=== PATIENT | female | born 1955 | race African-American/Black ===

== ENCOUNTER 2018-09-09 16:05 | Inpatient (IN) | payer OTHER ==
[2018-09-09] VITALS (32 sets, daily range): BP systolic 38–172; BP diastolic 20–128
[~2018-09-09] VITALS: Ht 154.9 cm; Wt 48.1 kg
--- NOTE | 2018-09-09 16:08 | NUR ---
SUCC 100 @ 1612 ETOMIDATE 20 @ 1611 AT BEDSIDE TO INTUBATE: 22 AT THE LIP POSITIVE COLOR CHANGE LUNGS SOUNDS-CASMARLENI
--- NOTE | 2018-09-09 16:27 | NUR ---
XRAY AT BEDSIDE
[2018-09-09 16:30] LABS: URINE BILIRUBIN NEGATIVE (Negative); URINE BLOOD NEGATIVE (Negative); URINE CLARITY CLEAR; URINE COLOR YELLOW; URINE GLUCOSE-RANDOM* NEGATIVE (Negative); URINE KETONES NEGATIVE (Negative); URINE LEUKOCYTES-REFLEX NEGATIVE (Negative); URINE NITRITE-REFLEX NEGATIVE (Negative); URINE PROTEIN (DIPSTICK) 2+ (Negative); URINE UROBILINOGEN 0.2 E.U./dl (0.2-1.0)
[2018-09-09 16:38] LABS: HEMATOCRIT 37.4 % (37.0-47.0)
[2018-09-09 16:39] LABS: HEMOGLOBIN 11.4 gm/dL (12.0-15.0); MCH 26.9 pg (26.0-34.0); MCHC 30.6 g/dL (28.0-37.0); PLATELET COUNT 270 thou/uL (150-400); RBC 4.25 mil/uL (4.20-5.00); RDW 14.1 % (10.5-14.5); WBC 14.6 thou/uL (4.0-11.0)
[2018-09-09 16:40] LABS: CALCIUM 11.3 mg/dL (8.5-10.1); CREATININE 1.1 mg/dL (0.6-1.0); POTASSIUM 3.9 mmol/L (3.5-5.1)
[2018-09-09 16:43] LABS: CALCIUM OXALATE 0-3 Few /LPF (None Seen); URINE WBC-REFLEX 0-5 Rare /HPF (0-5)
[2018-09-09 16:44] LABS: BACTERIA-REFLEX 1-9 Few /HPF (None Seen); CASTS None Seen /LPF (None Seen); SQUAMOUS 0-3 Few /LPF (0-3); URINE RBC None Seen /HPF (0-2)
[2018-09-09 16:49] LABS: MAGNESIUM 1.9 mg/dL (1.8-2.4)
[2018-09-09 16:53] LABS: BE(vivo) 0.7 mmol/L (-2 to +3); HCO3 33.2 mmol/L (22.0-26.0); PCO2 119.2 mmHg (35.0-45.0); PO2 96.5 mmHg (80.0-100.0); pH 7.063 (7.360-7.450); sO2 93.2 % (92.0-98.0)
[2018-09-09 16:55] LABS: TROPONIN-I 1.13 ng/mL (<0.06)
[2018-09-09 17:05] LABS: ABSOLUTE NEUTROPHILS 12.6 thou/uL (1.4-8.2)
[2018-09-09 17:06] LABS: BURR CELLS 3+; HYPOCHROMASIA 1+; MICROCYTES 2+
[2018-09-09 18:32] LABS: BE(vivo) -0.8 mmol/L (-2 to +3); HCO3 28.4 mmol/L (22.0-26.0); PCO2 74.9 mmHg (35.0-45.0); PO2 66.9 mmHg (80.0-100.0); sO2 87.9 % (92.0-98.0)
[2018-09-09 18:33] LABS: pH 7.197 (7.360-7.450)
--- NOTE | 2018-09-09 19:08 | NUR ---
DR RAMIREZ AT BEDSIDE; ATTEMPTING TO CONTACT RESPONSIBLE DEMOCRAT (JAYSHREE
[2018-09-09] MEDS ORDERED: NORVASC5 MG PO (21:06)
[2018-09-09] MEDS ORDERED: SYMBICORT160 MCG/4. INH (21:20)
--- NOTE | 2018-09-09 21:20 | NUR ---
PT ADMITTED FROM ER WITH ER NURSE. UNRESPONSIVE, NONREACTIVE LEFT EYE. MINIMAL RESPONSE. NOTED NONPURPOSEFUL MOVEMENT OF ARMS. ST, HR IN THE [address] FERRER AND BARTOLOME INFORMED ABOUT HR. PRESSURES IN THE 70S UPON ARRIVAL. LEVOPHED TITRATED TO KEEP MAP GREATER THAN 65. UNABLE TO GET O2 SAT ON PT, ORDERS FOR ABG REQUESTED. CRITICAL ABG REPORTED TO MARY FRASER AND DR. FERRER. WILL CONTINUE TO MONITOR.
[2018-09-09] MEDS ORDERED: REMERON15 MG PO (21:21)
[2018-09-09] MEDS ORDERED: PREDNISONE50 MG PO (21:22)
[2018-09-09] MEDS ORDERED: SPIRIVA INH (21:23)
[2018-09-09] MEDS ORDERED: TYLENOL325 MG PO (21:24)
[2018-09-09] MEDS ORDERED: HYDROXYZINE HCL25 M1 PO (21:25)
[2018-09-09] MEDS ORDERED: BIPAP MISCELL (21:25)
[2018-09-09 21:41] LABS: BE(vivo) -4.1 mmol/L (-2 to +3); sO2 62.7 % (92.0-98.0)
[2018-09-09 21:42] LABS: PCO2 68.2 mmHg (35.0-45.0)
[2018-09-09 21:48] LABS: pH 7.182 (7.360-7.450)
[2018-09-09 22:42] LABS: HEMATOCRIT 33.2 % (37.0-47.0); HEMOGLOBIN 10.1 gm/dL (12.0-15.0)
--- NOTE | 2018-09-09 22:52 | NUR ---
VASCULAR ACCESS TEAM CONSULTED FOR PICC LINE. LABS,MEDS,HISTORY,ORDER AND CONSENT VERIFIED. 5FR TL POWER PICC INSERTED IN [facility] BASILIC PER HOSPITAL POLICY. TL PICC TRIMMED TO 49CM INSERTED TO 2CM EXTERNAL. STAT CXR SHOWED TOO DEEP SO WITHDREW TOTAL OF 8CM. 2ND CXR ORDERED
[2018-09-09 22:59] LABS: CREATININE 1.5 mg/dL (0.6-1.0); DIRECT BILIRUBIN 0.2 mg/dL (<0.1-0.3); MAGNESIUM 1.5 mg/dL (1.8-2.4); POTASSIUM 3.5 mmol/L (3.5-5.1); TOTAL BILIRUBIN 0.4 mg/dL (<0.1-1.0)
[2018-09-09 23:04] LABS: CALCIUM 8.3 mg/dL (8.5-10.1); TROPONIN-I 5.94 ng/mL (<0.06)
[2018-09-10] VITALS (16 sets, daily range): BP systolic 46–212; BP diastolic 10–115
[2018-09-10 00:31] LABS: BE(vivo) 13.7 mmol/L (-2 to +3); HCO3 46.5 mmol/L (22.0-26.0); PCO2 147.7 mmHg (35.0-45.0); PO2 34.5 mmHg (80.0-100.0); pH 7.116 (7.360-7.450); sO2 43.2 % (92.0-98.0)
--- NOTE | 2018-09-10 00:48 | NUR ---
INITIAL CODE TATI CALLED ON PT AT 2220, EMERGENCY MEDICINE PHYSICIAN EVELIO AT BEDSIDE. CODED BY DIRECTION OF DR. FERNANDO AND EMERGENCY MEDICINE PHYSICIAN BARTOLOME. INFORMED DR. FERRER ABOUT CODE AT 2245. MATHEW DUFFY CALLED SEVEN TIMES DURING THE NIGHT, DR. FERRER PRESENT FOR MARJORITY OF THE CODE CALLED. PT MAXED ON LEVOPHED, EPI, VASOPRESSIN, DOPAMIN DURING THE CODE. FAMILY AT BEDSIDE DURING THE LAST CODE. PT CHANGED STATUS TO DNR AND DECIDED TO REDRAW CARE AFTER TALKING TO DR. FERRER. TIME OF CALLED 0048, 09/10/18. SEE CODE SHEETS FOR MEDICATIONS AND EVENTS.
--- NOTE | 2018-09-10 08:00 | EKG ---
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: Lesvia MIRELES RN : 1955 Requested By: Solomon Grey Order Number: [id number] MD: Ian Whittington Measurements Intervals [place] Rate: 115 P: 93 FL: 127 QRS: 94 QRSD: 82 T: 47 QT: 377 QTc: 522 Interpretive Statements Sinus tachycardia Nonspecific ST segment abnormality Prolonged QT interval No previous ECG available for comparison Electronically Signed On 09-10-2018 8:00:45 CDT by Ian Whittington [email or web address] ��������������������������������������������� <ELECTRONICALLY SIGNED> ���������������������������������������� By: Ian Whittington MD, [facility] ��������������������������������������������� 09/10/18 0800 185 52 Ian Whittington MD, FACC /EPI
--- NOTE | 2018-09-10 08:14 | EKG ---
[address] [place] [address] ELECTROCARDIOGRAM REPORT Name: SALOMEROBIN Room #: 239-P [facility] IN M.R.#: [id number] ������������������ Admission: 09/09/18 ������������������ Attend Phys: Ernestina Alford Discharge: 09/10/18 ������������������ Date of : 55 Report #: [id number] ����������������������������������������������������������������� [id number] THIS REPORT FOR: //name// [facility] ED Test Date: 2018-09-09 Test Time: 16:13:49 Pat Name: ROBIN MCMAHON Department: Room: 239 Gender: F [employer] Operator: SUNITA : 1955 Requested By: Solomon Grey Order Number: [id number] MD: Peter Xiao Measurements Intervals [place] Rate: 148 P: [place]: QRS: 71 QRSD: 86 T: 72 QT: 343 QTc: 539 Interpretive Statements Atrial fibrillation with rapid V-rate Repolarization abnormality, prob rate related No previous ECG available for comparison Electronically Signed On 09-10-2018 8:14:12 CDT by Peter Xiao [email or web address] ��������������������������������������������� <ELECTRONICALLY SIGNED> ���������������������������������������� By: Peter Xiao MD ��������������������������������������������� 09/10/18 0814 1613 12 Peter Xiao MD /VISH
== END 2018-09-10 00:48 | DRG 871 ==
LOC: ER 16:05 → EROBS 18:46 → ICU 20:22
PROVIDERS: Emergency Medicine; Nurse Practitioner Acute Care; Pediatrics; ADMIT Hospitalist
PROC: BH4BZZZ Ultrasonography of Chest Wall (ICD-10-PCS; principal; 2018-09-09)
PROC: 02HV33Z Insertion of Infusion Device into Superior Vena Cava, Percutaneous Approach (ICD-10-PCS; principal; 2018-09-09)
PROC: 0BH17EZ Insertion of Endotracheal Airway into Trachea, Via Natural or Artificial Opening (ICD-10-PCS; principal; 2018-09-09)
PROC: 5A1935Z Respiratory Ventilation, Less than 24 Consecutive Hours (ICD-10-PCS; principal; 2018-09-09)
DX: A41.9 Sepsis, unspecified organism (principal); R65.21 Severe sepsis with septic shock; J96.21 Acute and chronic respiratory failure with hypoxia; J96.22 Acute and chronic respiratory failure with hypercapnia; J18.9 Pneumonia, unspecified organism; N17.9 Acute kidney failure, unspecified; F20.0 Paranoid schizophrenia; J44.0 Chronic obstructive pulmonary disease with (acute) lower respiratory infection; J45.909 Unspecified asthma, uncomplicated; D64.9 Anemia, unspecified; F17.210 Nicotine dependence, cigarettes, uncomplicated; R91.8 Other nonspecific abnormal finding of lung field; I10 Essential (primary) hypertension; Z66 Do not resuscitate; Z88.0 Allergy status to penicillin; Z79.899 Other long term (current) drug therapy; Z99.81 Dependence on supplemental oxygen
CPT/HCPCS: 10078; 27000; 85028